=== PATIENT | female | born 1995 | race Caucasian/White ===

== ENCOUNTER 2023-05-07 08:43 | Emergency (ER) | payer BC ==
[~2023-05-07] VITALS: Ht 172.7 cm; Wt 56.7 kg
[2023-05-07 08:56] VITALS: TEMP 98.1
[2023-05-07] MEDS ORDERED: TDAP [DIPH/PERTUSSIS/TET] 0.5 ML VIAL IM ONE ×2 (09:16→09:30)
[2023-05-07] MEDS ORDERED: BACI/NEOM/POLY B OINT PKT 1 UDPKT PACKET ONE (09:17)
[2023-05-07] MEDS ORDERED: AMOX-430 PO (09:22)
[2023-05-07] MEDS ORDERED: AZIT250T13 PO (09:22)
[2023-05-07 09:30] VITALS: BP 128/93
[2023-05-07] MEDS ORDERED: BACI/NEOM/POLY B OINT PKT 1 UDPKT PACKET TP ONE (09:30)
[2023-05-07 09:34] VITALS: O2SAT 100
== END 2023-05-07 09:34 | disposition home or self-care (01) ==
LOC: ER 08:43
DX: S50.812A Abrasion of left forearm, initial encounter (principal); S61.432A Puncture wound without foreign body of left hand, initial encounter; S61.431A Puncture wound without foreign body of right hand, initial encounter; W55.03XA Scratched by cat, initial encounter; W55.01XA Bitten by cat, initial encounter; Y93.89 Activity, other specified; Y92.89 Other specified places as the place of occurrence of the external cause; Y99.8 Other external cause status
CPT/HCPCS: 99283; 90471; 90715; A6403